=== PATIENT | female | born 1995 | race Caucasian/White ===

== ENCOUNTER → 2022-01-23 | Outpatient (REF) | payer OTHER ==
[2022-01-23 18:05] LABS: ALBUMIN 3.8 GM/DL (3.2-5.2); ALT/SGPT 91 U/L (12-78); BILIRUBIN,TOTAL 0.5 MG/DL (0.2-1.0); BLOOD UREA NITROGEN 9 MG/DL (7-18); CALCIUM LEVEL 9.2 MG/DL (8.5-10.1); CARBON DIOXIDE LEVEL 30 MEQ/L (21-32); CHLORIDE LEVEL 103 MEQ/L (98-107); CHOLESTEROL LEVEL 183 MG/DL (<200); CHOLESTEROL RISK RATIO 3.155 (<5); CREATININE FOR GFR 0.91 MG/DL (0.55-1.30); GLOMERULAR FILTRATION RATE > 60.0 (>60); GLUCOSE, FASTING 101 MG/DL (70-100); HDL CHOLESTEROL 58 MG/DL (>40); LDL CHOLESTEROL 105 MG/DL (<100); NON-HDL-C 125 MG/DL; POTASSIUM SERUM 4.7 MEQ/L (3.5-5.1); SODIUM LEVEL 139 MEQ/L (136-145); TOTAL PROTEIN 7.4 GM/DL (6.4-8.2); TRIGLYCERIDES LEVEL 101 MG/DL (<150)
== END ==
LOC: M LAB REF 16:07
PROVIDERS: ATTEND Family Medicine Addiction Medicine
DX: R94.5 Abnormal results of liver function studies (principal)

== ENCOUNTER → 2022-02-22 | Outpatient (CLI) | payer OTHER | LOC: M WHC 06:53 | PROVIDERS: ATTEND Family Medicine Addiction Medicine | DX: R74.01 Elevation of levels of liver transaminase levels (principal) ==

== ENCOUNTER → 2022-07-30 | Outpatient (REF) | payer OTHER ==
[2022-07-30 14:36] LABS: ALBUMIN 4.2 G/DL (3.2-5.2); ALKALINE PHOSPHATASE 64 U/L (46-116); ALT/SGPT 98 U/L (7.0-40); AST/SGOT 61 U/L (<34); BILIRUBIN,TOTAL 0.4 MG/DL (0.3-1.2); BLOOD UREA NITROGEN 13 MG/DL (9-23); CALCIUM LEVEL 9.5 MG/DL (8.5-10.1); CARBON DIOXIDE LEVEL 29 MMOL/L (20-31); CHLORIDE LEVEL 105 MMOL/L (98-107); CHOLESTEROL LEVEL 183 MG/DL (<200); CHOLESTEROL RISK RATIO 2.78 (<5); CREATININE FOR GFR 0.94 MG/DL (0.55-1.30); GLOMERULAR FILTRATION RATE > 60.0 (>60); GLUCOSE, FASTING 93 MG/DL (60-100); HDL CHOLESTEROL 65.7 MG/DL (>40); LDL CHOLESTEROL 102.3 MG/DL (<100); NON-HDL-C 117.3 MG/DL; POTASSIUM SERUM 4.7 MMOL/L (3.5-5.1); SODIUM LEVEL 138 MMOL/L (136-145); THYROID STIMULATING HORMONE 1.187 uIU/ML (0.55-4.78); TOTAL PROTEIN 7.2 G/DL (5.7-8.2); TRIGLYCERIDES LEVEL 75 MG/DL (<150)
== END ==
LOC: M LAB REF 12:25
PROVIDERS: ATTEND Family Medicine Addiction Medicine
DX: E66.3 Overweight (principal)

== ENCOUNTER → 2023-01-28 | Outpatient (REF) | payer OTHER ==
[2023-01-28 17:12] LABS: ALKALINE PHOSPHATASE 72 U/L (46-116); ALT/SGPT 125 U/L (7.0-40); AST/SGOT 87 U/L (<34); BILIRUBIN,TOTAL 0.6 MG/DL (0.3-1.2); BLOOD UREA NITROGEN 12 MG/DL (9-23); CALCIUM LEVEL 9.9 MG/DL (8.5-10.1); CARBON DIOXIDE LEVEL 29 MMOL/L (20-31); CHLORIDE LEVEL 101 MMOL/L (98-107); CHOLESTEROL LEVEL 185 MG/DL (<200); CHOLESTEROL RISK RATIO 3.28 (<5); CREATININE FOR GFR 0.85 MG/DL (0.55-1.30); GLOMERULAR FILTRATION RATE > 60.0 (>60); GLUCOSE, FASTING 163 MG/DL (60-100); HDL CHOLESTEROL 56.4 MG/DL (>40); NON-HDL-C 128.6 MG/DL; SODIUM LEVEL 137 MMOL/L (136-145); THYROID STIMULATING HORMONE 0.944 uIU/ML (0.55-4.78); TOTAL PROTEIN 7.3 G/DL (5.7-8.2); TRIGLYCERIDES LEVEL 233 MG/DL (<150)
== END ==
LOC: M LAB REF 16:10
PROVIDERS: ATTEND Family Medicine Addiction Medicine
DX: E66.9 Obesity, unspecified (principal)

== ENCOUNTER → 2023-04-05 | Outpatient (REF) | payer OTHER | LOC: M LAB REF 17:31 | PROVIDERS: ATTEND Plastic Surgery Surgery of the Hand | DX: D22.4 Melanocytic nevi of scalp and neck (principal) ==

== ENCOUNTER → 2024-01-06 | Outpatient (REF) | payer OTHER ==
[2024-01-06 15:39] LABS: ALBUMIN 3.9 G/DL (3.2-5.2); ALKALINE PHOSPHATASE 81 U/L (46-116); ALT/SGPT 71 U/L (7.0-40); AST/SGOT 41 U/L (<34); BILIRUBIN,TOTAL 0.3 MG/DL (0.3-1.2); BLOOD UREA NITROGEN 10 MG/DL (9-23); CALCIUM LEVEL 9.5 MG/DL (8.5-10.1); CARBON DIOXIDE LEVEL 30 MMOL/L (20-31); CHLORIDE LEVEL 107 MMOL/L (98-107); CHOLESTEROL LEVEL 178 MG/DL (<200); CHOLESTEROL RISK RATIO 3.46 (<5); CREATININE FOR GFR 0.77 MG/DL (0.55-1.30); GLOMERULAR FILTRATION RATE > 60.0 (>60); GLUCOSE, FASTING 113 MG/DL (60-100); HDL CHOLESTEROL 51.3 MG/DL (>40); LDL CHOLESTEROL 107.3 MG/DL (<100); NON-HDL-C 126.7 MG/DL; POTASSIUM SERUM 4.8 MMOL/L (3.5-5.1); SODIUM LEVEL 141 MMOL/L (136-145); TOTAL PROTEIN 7.3 G/DL (5.7-8.2); TRIGLYCERIDES LEVEL 97 MG/DL (<150)
[2024-01-06 15:43] LABS: THYROID STIMULATING HORMONE 0.888 uIU/ML (0.55-4.78)
[2024-01-06 15:48] LABS: HCG, SERUM QUALITATIVE NEGATIVE (NEGATIVE)
== END ==
LOC: M LAB REF 12:39
PROVIDERS: ATTEND Family Medicine Addiction Medicine
DX: Z00.01 Encounter for general adult medical examination with abnormal findings (principal); N91.5 Oligomenorrhea, unspecified